=== PATIENT | male | born 1940 | race Caucasian/White ===

== ENCOUNTER 2022-02-01 13:00 | Observation (INO) | payer MEDICARE, OTHER, SELFPAY ==
[2022-02-01] VITALS (7 sets, daily range): BP systolic 118–140; BP diastolic 72–97; PULSE 75–86; RESP 16–20; TEMP 36.4–36.8; O2SAT 96–100; BMI 26.4; BMI 27.2
--- NOTE | ~2022-02-01 | CT_ITS ---
EXAMINATION: CT abdomen pelvis wo con DATE: 02/01/2022 17:16 INDICATION: abd pain TECHNIQUE: Computed tomography (CT) of the abdomen and pelvis was performed without intravenous contr ast. Automated exposure control and iterative reconstruction technique were employed. The dose-length product was 575.73 mGy-cm. COMPARISON: None FINDINGS: Lower thorax: Subsegmental groundglass and centrilobular opacities in the left lower lung. Senescent changes. Heavy coronary artery calcification. Aortic valve calcification. Large hiatal hernia. Liver: Normal. Biliary/Gallbladder: Gallbladder is absent. No bile duct dilation. Pancreas: No mass or duct dilation. Atrophy. Spleen: Normal. Adrenals:No mass. Minimal thickening, likely hyperplasia. Kidneys: Right simple cysts, no other mass, stone, or hydronephrosis. GI tract: Diverticulosis without diverticulitis. No obstruction. Appendix not visualized. Mesentery/Peritoneum: No ascites, mass, or free air. Retroperitoneum: Scattered borderline para-aortic nodes. Atherosclerotic aortoiliac calcification. Pelvis: Bladder dilation wall thickening, likely due to outlet obstruction from marked prostatomegaly . Soft Tissues: Soft tissues and body wall unremarkable. Bones: No acute osseous finding. IMPRESSION: Left lower lobe findings may reflect infection in the appropriate clinical context. No other acute ab dominopelvic process detected. Reviewed, dictated and finalized at location K. IMPRESSION: Left lower lobe findings may reflect infection in the appropriate clinical cont ext. No other acute abdominopelvic process detected.
--- NOTE | ~2022-02-01 | XR_ITS ---
XR chest 2V 02/01/2022 14:36 Indication: Chest congestion. Cough. Procedure: 2 view chest Comparison: 07/04/2009 Findings: Heart size is normal. There is a hiatal hernia. No focal air space disease, pulmonary edema , pleural effusion or suspected pneumothorax. No acute osseous abnormality. There are cholecystectomy clips. Impression: 1: No acute cardiopulmonary disease. 2: Hiatal hernia. Reviewed, dictated and finalized at location A. Impression: 1: No acute cardiopulmonary disease. 2: Hiatal hernia.
--- NOTE | 2022-02-01 13:14 | ECG_ITS ---
Measurements Intervals [place] Rate: 75 P: AK: 0 QRS: -15 QRSD: 90 T: 53 QT: 393 QTc: 441 Interpretive Statements ATRIAL FIBRILLATION NONSPECIFIC ST & T-WAVE ABNORMALITY- LAT/HIGH LAT LEADSS BASELINE ARTIFACT- I, II, III, AVR, AVL, AVF ABNORMAL ECG Electronically Signed On 02-01-2022 13:18:10 CDT by Tin Noriega D.O.
[2022-02-01 13:51] LABS: Basophils Percent Auto 0.2 % (0.2-1.2); Eosinophils Absolute Auto 0.1 K/mm3 (0-0.3); Eosinophils Percent Auto 1.4 % (0-4.4); Hematocrit 52.2 % (42.0-52.0); Hemoglobin 16.6 g/dL (14.0-18.0); Immature Granulocyte Absolute 0.03 K/mm3 (0.00-0.031); Immature Granulocyte Percent A 0.3 % (0-0.5); Lymphocytes Absolute Auto 2.06 K/mm3 (0.9-3.2); Lymphocytes Percent Auto 23.4 % (18.3-44.2); Mean Corpuscular HGB Conc 31.8 g/dl (32-36); Mean Corpuscular Hemoglobin 27.5 pg (26-34); Mean Corpuscular Volume 86.4 fl (80-100); Mean Platelet Volume 9.9 fl (7.4-10.4); Monocytes Percent Auto 11.1 % (2.6-8.5); Neutrophils Absolute Auto 5.6 K/mm3 (1.3-6.7); Neutrophils Percent Auto 63.6 % (45.5-73.1); Platelet Count Result 281 k/mm3 (150-375); Red Blood Count 6.04 M/mm3 (4.6-6.20); Red Cell Distribution Width 19.4 % (11.5-14.5); White Blood Count 8.8 K/mm3 (4.5-10.0)
--- NOTE | 2022-02-01 15:28 | ED.GENADULT ---
HPI - General Adult General Chief complaint: Nausea/Vomiting/Diarrhea Stated complaint: gout flare, congestion, cough Time Seen by Provider: 02/01/22 15:11 Source: RN notes reviewed History of Present Illness HPI narrative: Patient presents to emergency department from home for diarrhea. Patient states has had diarrhea for the past 14 days. States has had numerous episodes of loose stool states is this been associated with a cough that has been productive of yellow sputum he states has been feeling generally weak and tired with this and not having a good appetite per the patient family tested positive for influenza back at the end of December but he has not had an influenza test he denies any fevers or chills chest pain abdominal pain vomiting or any other symptoms Related Data Allergies Allergy/AdvReac Type Severity Reaction Status Date / Time meperidine Allergy Mild Unknown Verified 02/01/22 15:48 Review of Systems Review of Systems: Gen.: Denies fevers or chills ENT: Denies congestion Respiratory: See HPI CV: Denies chest pain or palpitations GI: Denies abdominal pain nausea, emesis reports diarrhea denies burning, urgency, frequency or hematuria Musculoskeletal: Denies back pain or muscle pain Neuro: Denies numbness, tingling, weakness or focal weakness Skin: Denies rash Except as documented, all other systems reviewed and negative [facility] Past Medical History Medical History (Updated 02/01/22 @ 18:55 by Kiet Padron DO) Gout Social History Social History (Updated 02/01/22 @ 15:29 by Kiet Padron DO) Smoking status: Never smoker Exam Narrative: APPEARANCE: No acute distress, nontoxic, resting in bed EYES: EOMI HEENT: Normocephalic, atraumatic, OMM RESPIRATORY: No respiratory distress Clear to auscultation bilaterally with no rhonchi wheezing or rales. CARDIOVASCULAR: Regular rate and rhythm without murmurs rubs or gallops. ABDOMINAL: Soft, nontender, nondistended, no rebound or guarding MUSCULOSKELETAl: Moves all extremities. No clubbing, cyanosis or edema. NEURO: Awake and alert. Following commands, speech normal, no focal deficits SKIN:: Warm, dry. No rashes lesions or abrasions PSYCHIATRIC: Normal affect/mood, Course Course Emergency Course: Discussed with ALVIN Melo for Dr Sherman agrees with admission at this time. At this time with symptom onset over 2 weeks ago we will hold Tamiflu Discussed with patient and family results of workup and diagnosis. Discussed need for admission. Patient and family understand and agree to current treatment plan Vital Signs Vital signs: Vital Signs Temperature 97.5 F L 02/01/22 13:07 Pulse Rate 75 02/01/22 13:07 Respiratory Rate 18 02/01/22 13:07 Blood Pressure 139/87 02/01/22 13:07 Pulse Oximetry 99 02/01/22 13:07 Temperature 97.5 F L 02/01/22 13:07 Pulse Rate 86 02/01/22 18:30 Respiratory Rate 20 02/01/22 18:30 Blood Pressure 120/89 02/01/22 18:30 Pulse Oximetry 100 02/01/22 18:30 Medical Decision Making Vital Signs Vital Signs: Vital Signs Temperature 97.5 F L 02/01/22 13:07 Pulse Rate 75 02/01/22 13:07 Respiratory Rate 18 02/01/22 13:07 Blood Pressure 139/87 02/01/22 13:07 Pulse Oximetry 99 02/01/22 13:07 Temperature 97.5 F L 02/01/22 13:07 Pulse Rate 86 02/01/22 18:30 Respiratory Rate 20 02/01/22 18:30 Blood Pressure 120/89 02/01/22 18:30 Pulse Oximetry 100 02/01/22 18:30 Lab Data Result diagrams: 02/01/22 13:26 02/01/22 15:27 Labs: Lab Results 02/01/22 02/01/22 02/01/22 Range/Units 13:26 13:26 15:27 WBC 8.8 (4.5-10.0) K/mm3 RBC 6.04 (4.6-6.20) M/mm3 Hgb 16.6 (14.0-18.0) g/dL Hct 52.2 H (42.0-52.0) % MCV 86.4 (80-100) fl MCH 27.5 (26-34) pg MCHC 31.8 L (32-36) g/dl RDW 19.4 H (11.5-14.5) % Plt Count 281 (150-375) k/mm3 MPV 9.9 (7.4-10.4) fl Immature Gran % (Auto) 0.3 (0-0.5
[2022-02-01 15:47] LABS: Alanine Aminotransferase 87 U/L (6-50); Albumin Level 4.4 g/dL (3.5-5.1); Alkaline Phosphatase 107 U/L (38-126); Anion Gap 7 mmol/L (8-16); Aspartate Amino Transferase 74 U/L (17-59); Blood Urea Nitrogen 21 mg/dL (9-20); Calcium 9.6 mg/dL (8.4-10.2); Carbon Dioxide 25 mmol/L (22-30); Chloride 99 mmol/L (98-107); Estimated CRCL calculation 50 ml/min; Estimated Glomerular Filt Rate > 60; Glucose 109 mg/dL (65-110); Lipase 95 U/L (23-300); Sodium 131 mmol/L (137-145)
[2022-02-01] MEDS: SODIUM CHLORIDE 0.9% IV 1,000 ML 999 ML IV CONT (15:48)
[2022-02-01 15:51] LABS: Lipase 96 U/L (23-300)
[2022-02-01 16:52] LABS: Influenza A QL RT-PCR Positive (Negative); Influenza B QL RT-PCR Negative (Negative); SARS-CoV-2 RNA PCR Negative
[2022-02-01 17:23] LABS: INR 5.4
[2022-02-01 17:24] LABS: Partial Thromboplastin Time 78.3 SECONDS (22.3-36.8)
[2022-02-01 17:49] LABS: Appearance Urine Clear (Clear); Bilirubin Urine 1+ (Negative); Blood Urine Negative (Negative); Color Urine Yellow (Yellow); Glucose Urine UA Negative (Negative); Ketones Urine Negative (Negative); Leukocyte Esterase Ur Negative LEU/UL (Negative); Nitrate Urine Negative (Negative); Protein Urine Negative (Negative); Specific Grav Ur 1.015 (1.001-1.035); Urobilinogen Urine 0.2 mg/dL (<2.0); pH Urine 5.5 (5.0-9.0)
[2022-02-01 18:06] LABS: Mucus Urine Rare /lpf; Squamous Epithelial Cell Urine Rare /hpf (Few); WBC Urine 0-3 /hpf
[2022-02-01 18:07] LABS: Add Urine Microscopic? YES
[2022-02-01 18:50] LABS: Lactic Acid Reflex 1.4 mmol/L (0.7-2.0)
--- NOTE | 2022-02-01 19:05 | PC.NURSE ---
Report given to SHAUNA Rojo
--- NOTE | 2022-02-01 21:23 | PC.NURSE ---
2122-CONTINUING TO ATTEMPT TO CONTACT RECEIVING NURSE ON [facility] FOR REPORT.
--- NOTE | 2022-02-01 21:26 | PC.NURSE ---
2125-REPORT GIVEN TO SHAUNA VAZQUEZ ON 3 [facility]
[2022-02-01] MEDS: SODIUM CHLORIDE 0.9% IV 1,000 ML 80 ML IV CONT (22:16)
[2022-02-02 05:57] VITALS: BP 119/49; PULSE 83; RESP 17; TEMP 36.7; O2SAT 95
[2022-02-02 07:34] LABS: Basophils Percent Auto 0.5 % (0.2-1.2); Eosinophils Absolute Auto 0.1 K/mm3 (0-0.3); Eosinophils Percent Auto 1.7 % (0-4.4); Hematocrit 46.1 % (42.0-52.0); Hemoglobin 15.1 g/dL (14.0-18.0); Immature Granulocyte Absolute 0.03 K/mm3 (0.00-0.031); Immature Granulocyte Percent A 0.5 % (0-0.5); Lymphocytes Absolute Auto 1.17 K/mm3 (0.9-3.2); Mean Corpuscular HGB Conc 32.8 g/dl (32-36); Mean Corpuscular Hemoglobin 28.2 pg (26-34); Mean Corpuscular Volume 86.2 fl (80-100); Mean Platelet Volume 10.1 fl (7.4-10.4); Monocytes Absolute Auto 0.7 K/mm3 (0.1-0.6); Monocytes Percent Auto 10.2 % (2.6-8.5); Neutrophils Absolute Auto 4.5 K/mm3 (1.3-6.7); Neutrophils Percent Auto 69.1 % (45.5-73.1); Platelet Count Result 232 k/mm3 (150-375); Red Blood Count 5.35 M/mm3 (4.6-6.20); Red Cell Distribution Width 18.9 % (11.5-14.5); White Blood Count 6.5 K/mm3 (4.5-10.0)
[2022-02-02 07:57] LABS: Alanine Aminotransferase 60 U/L (6-50); Albumin Level 3.3 g/dL (3.5-5.1); Alkaline Phosphatase 82 U/L (38-126); Anion Gap 8 mmol/L (8-16); Aspartate Amino Transferase 46 U/L (17-59); Bilirubin,Total 0.6 mg/dL (0.2-1.3); Blood Urea Nitrogen 15 mg/dL (9-20); Calcium 8.8 mg/dL (8.4-10.2); Carbon Dioxide 24 mmol/L (22-30); Chloride 106 mmol/L (98-107); Estimated CRCL calculation 60 ml/min; Estimated Glomerular Filt Rate > 60; Glucose 91 mg/dL (65-110); Potassium 4.6 mmol/L (3.4-5.0); Sodium 138 mmol/L (137-145)
--- NOTE | 2022-02-02 08:30 | PM.IMHP ---
H&P: HPI History of Present Illness Date/Time: 02/02/22 08:30 Chief Complaint: Diarrhea weakness Narrative: This is a 81-year-old male who presents to the ED with ongoing diarrhea for several days. He was also recently diagnosed with influenza from in the of December. He had a got it from his . He states he had numerous episodes of loose stool and has been taking Imodium. He has not had any diarrhea since he has been admitted. He also reports having cough with yellowish expectoration. There is associated weakness. No nausea vomiting. He was admitted for further evaluation and management under observation status. Review of Systems Review of Systems: - CONSTITUTIONAL: Denies weight loss, fever and chills. - HEENT: Denies changes in vision and hearing - RESPIRATORY: Denies SOB and reports cough. - CV: Denies palpitations and CP. - GI: Denies abdominal pain, nausea, vomiting and reports diarrhea. - : Denies dysuria and urinary frequency. - MSK: Denies myalgia and reports joint pain which is chronic. - SKIN: Denies rash and pruritus. - NEUROLOGICAL: Denies headache and syncope. - PSYCHIATRIC: Denies recent changes in mood. Denies anxiety and depression. All systems reviewed & are unremarkable except as noted in HPI and below Constitutional: Constitutional: Reports fatigue and Reports weakness Neurologic: Reports weakness Endocrine: Endocrine: Reports fatigue [facility] Past Medical History Medical History (Updated 02/01/22 @ 18:55 by Kiet Padron DO) Gout Social History Social History (Updated 02/01/22 @ 15:29 by Kiet Padron DO) Smoking status: Never smoker Second hand tobacco smoke exposure: No Substance use: never Substance use type: does not use Spiritual care concerns: No Meds Home Medications and Allergies Home Medications Medication Instructions Recorded Confirmed Type allopurinol 200 mg PO DAILY 02/01/22 02/01/22 History amlodipine 5 mg PO DAILY 02/01/22 02/01/22 History colchicine 0.6 mg PO DAILY 02/01/22 02/01/22 History dorzolamide-timolol 1 drp EACH EYE BID 02/01/22 02/01/22 History gabapentin 900 mg PO TID 02/01/22 02/01/22 History guaifenesin 400 mg PO Q4H PRN 02/01/22 02/01/22 History latanoprost 1 drp EACH EYE QPM 02/01/22 02/01/22 History lisinopril 40 mg PO DAILY 02/01/22 02/01/22 History metoprolol tartrate 12.5 mg PO BID 02/01/22 02/01/22 History omeprazole 20 mg PO DAILY 02/01/22 02/01/22 History rosuvastatin 40 mg PO HS 02/01/22 02/01/22 History warfarin 2.5 mg PO DAILY 02/01/22 02/01/22 History Allergies Allergy/AdvReac Type Severity Reaction Status Date / Time meperidine Allergy Mild Unknown Verified 02/01/22 15:48 Vital Signs Vital Signs - 24 hr 02/01/22 13:07 02/01/22 15:59 02/01/22 17:24 Temperature 97.5 F L Pulse Rate 75 79 75 Respiratory Rate 18 18 20 Blood Pressure 139/87 140/97 H 120/78 Pulse Oximetry 99 99 96 02/01/22 18:30 02/01/22 18:58 02/01/22 21:15 Temperature Pulse Rate 86 77 82 Respiratory Rate 20 16 20 Blood Pressure 120/89 131/85 118/72 Pulse Oximetry 100 99 97 02/01/22 21:40 02/02/22 05:57 Temperature 98.2 F 98.1 F Pulse Rate 86 83 Respiratory Rate 18 17 Blood Pressure 123/90 119/49 L Pulse Oximetry 99 95 Exam Narrative: APPEARANCE: No acute distress, nontoxic, resting in bed EYES: EOMI PERRLA HEENT: Normocephalic, atraumatic, OMM RESPIRATORY: No respiratory distress Clear to auscultation bilaterally with no rhonchi wheezing or rales. CARDIOVASCULAR: Regular rate and rhythm without murmurs rubs or gallops. ABDOMINAL: Soft, nontender, nondistended, no rebound or guarding MUSCULOSKELETAl: Moves all extremities. No clubbing, cyanosis or edema. NEURO: Awake and alert. Following commands, speech normal, no focal deficits SKIN:: Warm, dry. No rashes lesions or abrasions PSYCHIATRIC: Normal affect/mood, H&P: Results Labs Labs: Short CBC 02/01/22 02/02/22 Range/Units 13:26 07:27
[2022-02-02] MEDS: lisinopriL 20 MG TABLET 40 MG PO (09:34)
[2022-02-02] MEDS: COLCHICINE 0.6 MG TABLET PO (09:34)
[2022-02-02 09:35] VITALS: PULSE 83
[2022-02-02] MEDS: allopurinoL 100 MG TABLET 200 MG PO (09:35)
[2022-02-02] MEDS: amLODIPine BESYLATE 5 MG TABLET PO (09:35)
[2022-02-02] MEDS: PANTOPRAZOLE 40 MG TABLET PO (09:35)
[2022-02-02] MEDS: METOPROLOL TARTRATE 12.5 MG TABLET PO ×2 (09:35→20:10)
[2022-02-02] MEDS: GABAPENTIN 300 MG CAPSULE 900 MG PO ×3 (09:36→17:51)
[2022-02-02] MEDS: DORZOLAMIDE/TIMOLOL OPHTH SOL 10 ML BOTTLE 1 DROP EACH EYE ×2 (09:37→20:10)
[2022-02-02] MEDS: guaiFENesin 200 MG/10 ML UDC 400 MG PO (09:41)
[2022-02-02 14:00] VITALS: BP 124/51; PULSE 76; RESP 21; TEMP 36.3; O2SAT 96
[2022-02-02] MEDS: NAPROXEN SODIUM 220 MG TABLET PO (17:51)
[2022-02-02] MEDS: LATANOPROST 0.005% OP SOLN 2.5 ML BTL 1 DROP EACH EYE (17:53)
[2022-02-02 20:10] VITALS: PULSE 62
[2022-02-02] MEDS: ROSUVASTATIN 10 MG TABLET 40 MG PO (20:10)
[2022-02-02] MEDS: SODIUM CHLORIDE 0.9% IV 1,000 ML 80 ML IV CONT (20:12)
[2022-02-02 21:47] VITALS: BP 107/64; PULSE 56; RESP 18; TEMP 36.8; O2SAT 96
[2022-02-03 05:45] VITALS: BP 119/68; PULSE 63; RESP 18; TEMP 36.8; O2SAT 95
[2022-02-03 06:57] LABS: Basophils Percent Auto 0.4 % (0.2-1.2); Eosinophils Absolute Auto 0.2 K/mm3 (0-0.3); Eosinophils Percent Auto 2.8 % (0-4.4); Hematocrit 45.1 % (42.0-52.0); Hemoglobin 14.2 g/dL (14.0-18.0); Immature Granulocyte Absolute 0.02 K/mm3 (0.00-0.031); Immature Granulocyte Percent A 0.4 % (0-0.5); Lymphocytes Absolute Auto 1.04 K/mm3 (0.9-3.2); Lymphocytes Percent Auto 19.5 % (18.3-44.2); Mean Corpuscular HGB Conc 31.5 g/dl (32-36); Mean Corpuscular Hemoglobin 27.7 pg (26-34); Mean Corpuscular Volume 88.1 fl (80-100); Mean Platelet Volume 10.4 fl (7.4-10.4); Monocytes Absolute Auto 0.5 K/mm3 (0.1-0.6); Neutrophils Absolute Auto 3.6 K/mm3 (1.3-6.7); Neutrophils Percent Auto 66.9 % (45.5-73.1); Platelet Count Result 253 k/mm3 (150-375); Red Blood Count 5.12 M/mm3 (4.6-6.20); Red Cell Distribution Width 18.8 % (11.5-14.5); White Blood Count 5.3 K/mm3 (4.5-10.0)
[2022-02-03 07:08] LABS: INR 4.9; Prothrombin Time 44.4 Seconds (11.1-14.7)
[2022-02-03 07:10] LABS: Alanine Aminotransferase 53 U/L (6-50); Albumin Level 3.1 g/dL (3.5-5.1); Alkaline Phosphatase 79 U/L (38-126); Anion Gap 7 mmol/L (8-16); Aspartate Amino Transferase 37 U/L (17-59); Bilirubin,Total 0.6 mg/dL (0.2-1.3); Blood Urea Nitrogen 13 mg/dL (9-20); Calcium 8.7 mg/dL (8.4-10.2); Carbon Dioxide 22 mmol/L (22-30); Chloride 107 mmol/L (98-107); Estimated CRCL calculation 54 ml/min; Estimated Glomerular Filt Rate > 60; Glucose 87 mg/dL (65-110); Potassium 4.4 mmol/L (3.4-5.0); Sodium 136 mmol/L (137-145)
[2022-02-03] MEDS: amLODIPine BESYLATE 5 MG TABLET PO (08:06)
[2022-02-03] MEDS: lisinopriL 20 MG TABLET 40 MG PO (08:06)
[2022-02-03] MEDS: PANTOPRAZOLE 40 MG TABLET PO (08:06)
[2022-02-03] MEDS: GABAPENTIN 300 MG CAPSULE 900 MG PO (08:06)
[2022-02-03] MEDS: allopurinoL 100 MG TABLET 200 MG PO (08:06)
[2022-02-03 08:07] VITALS: PULSE 68
[2022-02-03] MEDS: METOPROLOL TARTRATE 12.5 MG TABLET PO (08:07)
[2022-02-03] MEDS: DORZOLAMIDE/TIMOLOL OPHTH SOL 10 ML BOTTLE 1 DROP EACH EYE (08:07)
[2022-02-03] MEDS: COLCHICINE 0.6 MG TABLET PO (08:07)
[2022-02-03] MEDS: NAPROXEN SODIUM 220 MG TABLET PO (08:10)
--- NOTE | 2022-02-03 10:11 | PM.DS ---
DS: Admitting Diagnosis Discharge Date 02/03/2022 Admitting Diagnosis Generalized weakness DS: Discharge Diagnosis Discharge Diagnosis (1) Influenza A: Code(s): J10.1 - Influenza due to other identified influenza virus with other respiratory manifestations Status: Acute (2) Community acquired pneumonia: Code(s): J18.9 - Pneumonia, unspecified organism Status: Acute (3) Supratherapeutic INR: Code(s): R79.1 - Abnormal coagulation profile Status: Acute (4) Gout: Code(s): M10.9 - Gout, unspecified Status: Acute DS: Summary Hospital Course Hospital Course: This is a 81-year-old male who presents to the ED with ongoing diarrhea for several days. He was also recently diagnosed with influenza from in the of December. He had a got it from his . He states he had numerous episodes of loose stool and has been taking Imodium. He has not had any diarrhea since he has been admitted. He also reports having cough with yellowish expectoration. There is associated weakness. No nausea vomiting. He was admitted for further evaluation and management under observation status. Evaluation revealing a positive influenza a. He was out of window for Tamiflu treatment. Imaging studies also reveal left lower lobe pneumonia diagnosed with community-acquired pneumonia was started on azithromycin and Rocephin. He had generalized weakness and was hydrated with IV fluid. He also had evidence of mild hyponatremia and mildly elevated LFTs during the hospital stay. His INR was supratherapeutic at 5.4. He normally takes 2 mg of warfarin on every day except for Sunday and when he takes 4 mg. INR is being managed by his [place] doctor. His INR on day of discharge was still 4.9. There is no evidence of any bleeding. He will continue to hold his Coumadin over the weekend and restarted 2 mg on Sunday morning. He will recheck his INR on Sunday and report to [place] doctor for further instruction. A improved significantly with the treatment and observation. He will go on antibiotics orally for his pneumonia. Time Spent with Patient Time attestation: Total time spent providing and/or coordinating discharge services: 45 minute Exam Narrative: APPEARANCE: No acute distress, nontoxic, resting in bed EYES: EOMI PERRLA HEENT: Normocephalic, atraumatic, OMM RESPIRATORY: No respiratory distress Clear to auscultation bilaterally with no rhonchi wheezing or rales. CARDIOVASCULAR: Regular rate and rhythm without murmurs rubs or gallops. ABDOMINAL: Soft, nontender, nondistended, no rebound or guarding MUSCULOSKELETAl: Moves all extremities. No clubbing, cyanosis or edema. NEURO: Awake and alert. Following commands, speech normal, no focal deficits SKIN:: Warm, dry. No rashes lesions or abrasions PSYCHIATRIC: Normal affect/mood, DS: Data Data Completed and Pending Labs on day of discharge: Labs from last 24 hours 02/03/22 02/03/22 02/03/22 06:38 06:38 06:38 WBC 5.3 RBC 5.12 Hgb 14.2 Hct 45.1 MCV 88.1 MCH 27.7 MCHC 31.5 L RDW 18.8 H Plt Count 253 MPV 10.4 Immature Gran % (Auto) 0.4 Neut % (Auto) 66.9 Lymph % (Auto) 19.5 [place] % (Auto) 10.0 H Eos % (Auto) 2.8 Baso % (Auto) 0.4 Lymph # (Auto) 1.04 [place] # (Auto) 0.5 Eos # (Auto) 0.2 Baso # (Auto) 0.0 Abs Immat Gran (auto) 0.02 Absolute Neuts (auto) 3.6 Absolute Nucleated RBC 0.0 Nucleated RBC % 0.0 PT 44.4 H INR 4.9 Sodium 136 L Potassium 4.4 Chloride 107 Carbon Dioxide 22 Anion Gap 7 L BUN 13 Creatinine 0.90 Estim Creat Clear Calc 54 Estimated GFR > 60 Glucose 87 Calcium 8.7 Total Bilirubin 0.6 AST 37 ALT 53 H Alkaline Phosphatase 79 Total Protein 6.0 L Albumin 3.1 L Preliminary micro results at discharge 02/01/22 18:26 Blood Culture - Preliminary Blood 02/01/22 18:25 Blood Culture - Preliminary Blood
== END 2022-02-03 10:45 | disposition home or self-care (01) ==
LOC: ANHED 18:55 → ANH3MEDSUR 20:17
PROVIDERS: Admitting Provider Internal Medicine; Emergency Provider Emergency Medicine; Visit Provider Internal Medicine
DX: J10.1 Influenza due to other identified influenza virus with other respiratory manifestations (principal); J18.9 Pneumonia, unspecified organism; R79.1 Abnormal coagulation profile; M10.9 Gout, unspecified; I48.91 Unspecified atrial fibrillation; Z79.01 Long term (current) use of anticoagulants; Z20.822 Contact with and (suspected) exposure to COVID-19
CPT/HCPCS: 36415; 71046; 74176; 80053; 81001; 83605; 83690; 85025; 85610; 85730; 87040; 87502; 93005; 96361; 96365; 96374; 96375; 99285; A9270; C9803; G0378; J0456; J0696; J7030; U0003; U0005

== ENCOUNTER 2022-02-11 19:46 | Emergency (ER) | payer MEDICARE, OTHER, SELFPAY ==
--- NOTE | ~2022-02-11 | CT_ITS ---
EXAMINATION: CT brain wo con DATE: 02/11/2022 20:46 INDICATION: Status post fall. Trauma to the back of the head. TECHNIQUE: Computed tomography (CT) of the head was performed without intravenous contrast. The dose- length product was 605.33 mGy-cm. Automated exposure control and iterative reconstruction technique w ere employed. 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 There is a chronic right frontal lobe infarc tion. Generalized atrophy. There are scattered mild periventricular and subcortical white matter pace ges, most likely related to small vessel ischemic disease (microangiopathy). There is right maxillary sinus disease. No acute intracranial hemorrhage, infarction, mass or mass effect. There is intracran ial atherosclerosis. IMPRESSION: 1. No acute intracranial abnormality. 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 3: Right maxillary sinus disease. 4: Chronic age-related findings. Reviewed, dictated and finalized at location A.
--- NOTE | ~2022-02-11 | CT_ITS ---
EXAMINATION: CT cervical spine wo con DATE: 02/11/2022 20:46 INDICATION: Neck pain after fall TECHNIQUE: Computed tomography (CT) of the cervical spine was performed without intravenous contrast. The dose-length product was 403 mGy-cm. Automated exposure control and iterative reconstruction tech nique were employed. COMPARISON: None FINDINGS: No acute fracture, subluxation or dislocation. There is degenerative anterolisthesis at C2- 3 and C7-T1 secondary to facet hypertrophy. There is severe multilevel disc narrowing as well as unci gale and facet hypertrophy. There is carotid atherosclerosis. Odontoid process is normal. Lung apices are unremarkable. No cervical lymphadenopathy. Craniovertebral junction is normal. IMPRESSION: 1. No acute abnormality of the cervical spine. 2: Severe cervical spondylosis. Reviewed, dictated and finalized at location A.
--- NOTE | ~2022-02-11 | XR_ITS ---
XR elbow RT min 3V 02/11/2022 20:36 Indication: Right elbow pain Procedure: 4 views right elbow Comparison: No prior studies for comparison. 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 There is a joint effusion. No acute fracture or traumatic malalignment is identified. No foreign bodies. Impression: 1: No acute fracture. 2: Moderate osteoarthritis of the elbow. Reviewed, dictated and finalized at location A. Impression: 1: No acute fracture. 2: Moderate osteoarthritis of the elbow.
[2022-02-11 19:47] VITALS: BP 169/78; PULSE 56; RESP 18; TEMP 36.2; O2SAT 100
--- NOTE | 2022-02-11 20:41 | ED.FALL ---
HPI - Fall General Chief Complaint: Fall Stated Complaint: HEAD INJURY/POST FALL/ARM LAC Time Seen by Provider: 02/11/22 20:13 Source: patient History of Present Illness HPI Narrative: Patient presents after a fall. Patient jaja he sat down in his chair and the chair fell backwards and he struck his head on a refrigerator. Reports headache neck pain and right elbow pain. Right elbow pain is achy, constant, worse with moving his joint, no radiation. Reports overall his pain has greatly improved since his initial injury. Denies any new focal numbness or weakness. Any prodrome prior to the fall such as chest pain, lightheadedness, shortness of breath. Jaja has been feeling well denies any recent fevers, cough, congestion. Denies any nausea vomiting or blurry vision. Related Data Home Medications Medication Instructions Recorded Confirmed allopurinol 100 mg tablet 200 mg PO DAILY 02/01/22 02/01/22 amlodipine 5 mg tablet 5 mg PO DAILY 02/01/22 02/01/22 colchicine 0.6 mg tablet 0.6 mg PO DAILY 02/01/22 02/01/22 dorzolamide 22.3 mg-timolol 6.8 1 drp EACH EYE BID 02/01/22 02/01/22 mg/mL eye drops gabapentin 300 mg capsule 900 mg PO TID 02/01/22 02/01/22 guaifenesin 400 mg tablet 400 mg PO Q4H PRN to thin mucous 02/01/22 02/01/22 latanoprost 0.005 % eye drops 1 drp EACH EYE QPM 02/01/22 02/01/22 lisinopril 40 mg tablet 40 mg PO DAILY 02/01/22 02/01/22 metoprolol tartrate 25 mg tablet 12.5 mg PO BID 02/01/22 02/01/22 omeprazole 20 mg capsule,delayed 20 mg PO DAILY 02/01/22 02/01/22 release rosuvastatin 40 mg tablet 40 mg PO HS 02/01/22 02/01/22 warfarin 2.5 mg tablet 2.5 mg PO DAILY 02/01/22 02/01/22 Allergies Allergy/AdvReac Type Severity Reaction Status Date / Time meperidine Allergy Mild Unknown Verified 02/01/22 15:48 Review of Systems Review of Systems: CONSTITUTIONAL: Denies fever, chills, or sweats. EYES: Denies visual changes, redness, or discharge. ENT: Denies rhinorrhea, congestion, sore throat, or otalgia. CARDIOVASCULAR: Denies chest pain, palpitations, or edema. RESPIRATORY: Denies cough or dyspnea. GASTROINTESTINAL: Denies abdominal pain, nausea, vomiting, or diarrhea. GENITOURINARY: Denies dysuria or hematuria. SKIN: Denies rash or itching. MUSCULOSKELETAL: Denies back pain, or myalgia. NEUROLOGIC: Denies new numbness, dizziness, or weakness. PSYCHIATRIC: Denies anxiety or depression. All systems reviewed & are unremarkable except as noted in HPI and below PMFSH Past Medical History Medical History Gout Social History Social History Smoking status: Never smoker Second hand tobacco smoke exposure: No Substance use: never Substance use type: does not use Spiritual care concerns: No Exam Narrative: GENERAL: Well-appearing, well-nourished, and in no acute distress. HEAD: Normocephalic, 1/2 cm superficial laceration on the occiput right of midline no active bleeding there is a nearby superficial abrasion EYES: PERRLA and EOMI. ENT: Nares clear, no rhinorrhea or epistaxis. Mucous membranes moist. NECK: Supple. No masses. No JVD CHEST: Clear to auscultation. No respiratory distress. No wheezes rales or rhonchi HEART: Regular rate and rhythm. No murmur heard. Normal peripheral pulses. ABDOMEN: Soft, nontender, nondistended, normal active bowel sounds. EXTREMITIES: Normal range of motion. No edema. SKIN: Warm, dry, no rash. NEURO: Cranial nerves II through XII are intact patient is 5 out of 5 strength all extremities sensation intact light touch in all extremities alert and oriented x3. PSYCH: Normal mood and affect. Course Reevaluation(s) Reevaluation #1: Patient resting comfortably results plan reviewed with patient. Patient is comfortable outpatient plan. Patient informed stable 20 to come out next 5 to 7 days. Patient reports his last tetanus shot was less than 10 years ago.
[2022-02-11 21:04] LABS: Basophils Percent Auto 0.7 % (0.2-1.2); Eosinophils Absolute Auto 0.2 K/mm3 (0-0.3); Hematocrit 44.4 % (42.0-52.0); Hemoglobin 13.7 g/dL (14.0-18.0); Immature Granulocyte Absolute 0.03 K/mm3 (0.00-0.031); Immature Granulocyte Percent A 0.5 % (0-0.5); Lymphocytes Absolute Auto 1.63 K/mm3 (0.9-3.2); Lymphocytes Percent Auto 28.4 % (18.3-44.2); Mean Corpuscular HGB Conc 30.9 g/dl (32-36); Mean Corpuscular Volume 90.6 fl (80-100); Monocytes Absolute Auto 0.5 K/mm3 (0.1-0.6); Monocytes Percent Auto 8.9 % (2.6-8.5); Neutrophils Absolute Auto 3.3 K/mm3 (1.3-6.7); Neutrophils Percent Auto 57.5 % (45.5-73.1); Platelet Count Result 267 k/mm3 (150-375); Red Cell Distribution Width 18.6 % (11.5-14.5); White Blood Count 5.7 K/mm3 (4.5-10.0)
[2022-02-11 21:15] LABS: INR 1.7; Partial Thromboplastin Time 33.8 SECONDS (22.3-36.8); Prothrombin Time 18.9 Seconds (11.1-14.7)
[2022-02-11 21:16] LABS: Alanine Aminotransferase 63 U/L (6-50); Albumin Level 3.8 g/dL (3.5-5.1); Alkaline Phosphatase 86 U/L (38-126); Anion Gap 5 mmol/L (8-16); Aspartate Amino Transferase 62 U/L (17-59); Bilirubin,Total 0.3 mg/dL (0.2-1.3); Blood Urea Nitrogen 15 mg/dL (9-20); Calcium 8.9 mg/dL (8.4-10.2); Carbon Dioxide 27 mmol/L (22-30); Chloride 107 mmol/L (98-107); Estimated Glomerular Filt Rate 53; Glucose 128 mg/dL (65-110); Potassium 4.2 mmol/L (3.4-5.0); Sodium 139 mmol/L (137-145)
== END 2022-02-11 22:16 | disposition home or self-care (01) ==
PROVIDERS: Emergency Provider Emergency Medicine
DX: S01.01XA Laceration without foreign body of scalp, initial encounter (principal); M10.9 Gout, unspecified; Z79.01 Long term (current) use of anticoagulants; M19.021 Primary osteoarthritis, right elbow; J32.0 Chronic maxillary sinusitis; M47.812 Spondylosis without myelopathy or radiculopathy, cervical region; W07.XXXA Fall from chair, initial encounter
CPT/HCPCS: 12001; 36415; 70450; 72125; 73080; 80053; 85025; 85610; 85730; 99284; L0140

== ENCOUNTER 2022-02-22 11:32 | Emergency (ER) | payer MEDICARE, OTHER, SELFPAY ==
[2022-02-22 11:40] VITALS: BP 133/92; PULSE 68; RESP 16; TEMP 36.2; O2SAT 99
--- NOTE | 2022-02-22 11:51 | ED.GENADULT ---
HPI - General Adult General Chief complaint: Unspecified Stated complaint: removal of stitches Time Seen by Provider: 02/22/22 11:51 Source: patient Mode of arrival: ambulatory Limitations: no limitations History of Present Illness HPI narrative: 81-year-old male presented for 2 ankit to be removed from the right scalp. Ankit were placed on 02/18/[address] [facility]. The wound is well approximated, scabbed over, no redness, drainage, or tenderness. Denies any new complaints or concerns. Related Data Home Medications Medication Instructions Recorded Confirmed amlodipine 5 mg tablet 5 mg PO DAILY 02/01/22 02/01/22 colchicine 0.6 mg tablet 0.6 mg PO DAILY 02/01/22 02/01/22 dorzolamide 22.3 mg-timolol 6.8 1 drp EACH EYE BID 02/01/22 02/01/22 mg/mL eye drops gabapentin 300 mg capsule 900 mg PO TID 02/01/22 02/01/22 latanoprost 0.005 % eye drops 1 drp EACH EYE QPM 02/01/22 02/01/22 lisinopril 40 mg tablet 40 mg PO DAILY 02/01/22 02/01/22 metoprolol tartrate 25 mg tablet 12.5 mg PO BID 02/01/22 02/01/22 omeprazole 20 mg capsule,delayed 20 mg PO DAILY 02/01/22 02/01/22 release rosuvastatin 40 mg tablet 40 mg PO HS 02/01/22 02/01/22 warfarin 2.5 mg tablet 2.5 mg PO DAILY 02/01/22 02/01/22 allopurinol 100 mg tablet See Rx Instructions .Route .COMPLEX 02/22/22 aspirin 81 mg tablet,delayed 81 mg PO DAILY 02/22/22 release diclofenac sodium 1 % topical gel 4 g topical QID 02/22/22 guaifenesin 400 mg tablet See Rx Instructions .Route .COMPLEX 02/22/22 Allergies Allergy/AdvReac Type Severity Reaction Status Date / Time meperidine Allergy Mild Unknown Verified 02/22/22 10:53 Review of Systems Review of Systems: CONSTITUTIONAL: Denies body aches, fever, chills, or sweats. EYES: Denies visual changes, redness, or discharge. GASTROINTESTINAL: Denies abdominal pain, nausea, vomiting, or diarrhea. SKIN: Reports ankit to be removed MUSCULOSKELETAL: Denies back pain, joint pain, or myalgia. NEUROLOGIC: Denies headache, numbness, tingling, or weakness. [facility] Past Medical History Medical History Chicken pox Community acquired pneumonia Gout Influenza A (~2021) Mumps Pneumonia (~2021) Rheumatic fever Supratherapeutic INR Family History Family History Father , 70 Emphysema, unspecified Mother , 68 Ruptured, aorta Sibling Tumor Alzheimer disease Social History Social History Social History: Patient drinks 1 cup of caffeine daily. Smoking status: Never smoker Second hand tobacco smoke exposure: No Alcohol intake: never Substance use: never Substance use type: does not use Additional living arrangements comments: Patient is Gender identity (if verbalized by the patient): Male Sexual Orientation (if Verbalized by the Patient): Straight or Heterosexual Spiritual care concerns: No Comments At time of signature, I have reviewed and agree with nursing past medical, surgical, social and family history unless otherwise noted. Please see nursing chart for further information. There is no relevant family history pertinent to the presenting complaint Exam Narrative: GENERAL: Well-appearing, well-nourished, and in no acute distress. HEAD: Normocephalic, atraumatic. EYES: PERRLA, conjunctivae clear, and EOMI. ENT: Mucous membranes moist. Oropharynx without edema, erythema or lesions. NECK: Supple. No lymphadenopathy CHEST: Clear to auscultation. No respiratory distress. HEART: Regular rate and rhythm. SKIN: Warm, dry. Patches of erythema and edema NEURO: Alert and oriented x3. PSYCH: Normal mood and affect Course Course Emergency Course: Patient is aware of diagnosis, understands and agrees to treatment plan. Anticipatory guidance given. Patient agrees to follow-up as direct
== END 2022-02-22 11:58 | disposition home or self-care (01) ==
PROVIDERS: Emergency Provider Nurse Practitioner Family; PCP Emergency Medicine
DX: S01.01XD Laceration without foreign body of scalp, subsequent encounter (principal); X58.XXXD Exposure to other specified factors, subsequent encounter; M10.9 Gout, unspecified
CPT/HCPCS: 99211; G0463